=== PATIENT | male | born 1950 | race Native Hawaiian/Other Pacific Islander ===

== ENCOUNTER 2019-04-09 08:43 | Outpatient (CLI) | payer OTHER | END 2019-04-09 19:19 | disposition home or self-care (01) | LOC: LABW 08:43 → EDBD 08:43 → LABW 19:19 | DX: D72.828 Other elevated white blood cell count (principal) | CPT/HCPCS: 36415 ==

== ENCOUNTER 2022-03-01 15:03 | Outpatient (CLI) | payer OTHER | END 2022-03-01 19:32 | disposition home or self-care (01) | LOC: RAD 15:03 | PROVIDERS: ATTEND Nurse Practitioner Family | DX: Z01.818 Encounter for other preprocedural examination (principal) | CPT/HCPCS: 93005 ==